=== PATIENT | female | born 1990 | race Caucasian/White ===

== ENCOUNTER 2021-10-24 12:39 | Outpatient (CLI) | payer OTHER, SELFPAY ==
[2021-10-24] VITALS (12 sets, daily range): BP systolic 122–145; BP diastolic 80–100; PULSE 71–88; BMI 26.0
--- NOTE | 2021-10-24 13:39 | PC.NURSE ---
Dr. Marvel Markham informed of pt's BP's during NST for SGA infant. Orders received to change to clinical status, draw labs, urine, and start Labetalol.
[2021-10-24] MEDS: LABETALOL HCL 100 MG TABLET PO (14:05)
[2021-10-24 14:16] LABS: Basophils Percent Auto 0.4 % (0.2-1.2); Eosinophils Absolute Auto 0.1 K/mm3 (0-0.3); Eosinophils Percent Auto 1.1 % (0-4.4); Hematocrit 38.9 % (37.0-47.0); Hemoglobin 13.4 g/dL (12.0-15.0); Immature Granulocyte Absolute 0.07 K/mm3 (0.00-0.031); Immature Granulocyte Percent A 0.7 % (0-0.5); Lymphocytes Absolute Auto 1.95 K/mm3 (0.9-3.2); Lymphocytes Percent Auto 18.6 % (18.3-44.2); Mean Corpuscular HGB Conc 34.4 g/dl (32-36); Mean Corpuscular Volume 92.8 fl (80-100); Mean Platelet Volume 9.2 fl (7.4-10.4); Monocytes Absolute Auto 0.6 K/mm3 (0.1-0.6); Monocytes Percent Auto 5.8 % (2.6-8.5); Neutrophils Absolute Auto 7.7 K/mm3 (1.3-6.7); Neutrophils Percent Auto 73.4 % (45.5-73.1); Platelet Count Result 284 k/mm3 (150-375); Red Blood Count 4.19 M/mm3 (4.2-5.4); Red Cell Distribution Width 12.6 % (11.5-14.5); White Blood Count 10.5 K/mm3 (4.5-10.0)
[2021-10-24 14:18] LABS: Appearance Urine Clear (Clear); Bilirubin Urine Negative (Negative); Blood Urine Trace-lysed (Negative); Color Urine Yellow (Yellow); Glucose Urine UA Negative (Negative); Ketones Urine Negative (Negative); Leukocyte Esterase Ur Negative LEU/UL (Negative); Nitrate Urine Negative (Negative); Protein Urine Negative (Negative); Urobilinogen Urine 0.2 mg/dL (<2.0); pH Urine 6.5 (5.0-9.0)
[2021-10-24 14:23] LABS: RBC Urine 0-2 /hpf (0-2); Squamous Epithelial Cell Urine Occasional /hpf (Few); WBC Urine 0-3 /hpf
[2021-10-24 14:24] LABS: Add Urine Microscopic? YES
[2021-10-24 14:34] LABS: Alanine Aminotransferase 21 U/L (4-35); Alkaline Phosphatase 194 U/L (38-126); Anion Gap 8 mmol/L (8-16); Aspartate Amino Transferase 35 U/L (14-36); Bilirubin,Total 0.2 mg/dL (0.2-1.3); Blood Urea Nitrogen 10 mg/dL (7-17); Calcium 8.9 mg/dL (8.4-10.2); Carbon Dioxide 20 mmol/L (22-30); Chloride 106 mmol/L (98-107); Estimated CRCL calculation 112 ml/min; Estimated Glomerular Filt Rate > 60; Glucose 70 mg/dL (65-110); Potassium 3.9 mmol/L (3.4-5.0); Sodium 134 mmol/L (137-145); Uric Acid 4.8 mg/dL (2.5-7.5)
[2021-10-24 15:14] LABS: Creatinine Urine 31.9 mg/dL; Total Protein Urine Random 13 mg/dL; Ur Ttl Prot Creatinine Ratio 0.41 mg/mg (0-0.20)
--- NOTE | 2021-10-24 15:29 | PC.NURSE ---
Dr. Marvel Markham informed of lab results and updated on BP's. Informed MD that pt would be OK with stopping work. Orders received.
== END 2021-10-24 15:54 | disposition home or self-care (01) ==
LOC: ANHOBOP 13:51 → ANHLDR 13:52
PROVIDERS: Visit Provider Obstetrics & Gynecology
DX: O13.9 Gestational [pregnancy-induced] hypertension without significant proteinuria, unspecified trimester (principal)
CPT/HCPCS: 36415; 59025; 80053; 81001; 82570; 84156; 84550; 85025; A9270

== ENCOUNTER 2021-10-31 12:08 | Outpatient (RCR) | payer OTHER, SELFPAY ==
[2021-10-31 13:11] VITALS: BP 133/88; PULSE 82
== END 2021-11-13 02:52 | disposition home or self-care (01) ==
LOC: ANHOBOP 12:08
PROVIDERS: Visit Provider Obstetrics & Gynecology
DX: O13.9 Gestational [pregnancy-induced] hypertension without significant proteinuria, unspecified trimester (principal); Z3A.00 Weeks of gestation of pregnancy not specified
CPT/HCPCS: 59025

== ENCOUNTER 2021-11-07 11:18 | Outpatient (CLI) | payer OTHER, SELFPAY ==
[2021-11-07 11:37] VITALS: BP 142/95; PULSE 93
[2021-11-07 11:48] VITALS: BP 148/99; PULSE 86
[2021-11-07 11:56] LABS: Basophils Percent Auto 0.4 % (0.2-1.2); Eosinophils Absolute Auto 0.1 K/mm3 (0-0.3); Eosinophils Percent Auto 0.8 % (0-4.4); Hematocrit 39.8 % (37.0-47.0); Hemoglobin 14.3 g/dL (12.0-15.0); Immature Granulocyte Absolute 0.03 K/mm3 (0.00-0.031); Immature Granulocyte Percent A 0.3 % (0-0.5); Lymphocytes Absolute Auto 1.87 K/mm3 (0.9-3.2); Lymphocytes Percent Auto 18.8 % (18.3-44.2); Mean Corpuscular HGB Conc 35.9 g/dl (32-36); Mean Corpuscular Hemoglobin 32.1 pg (26-34); Mean Corpuscular Volume 89.4 fl (80-100); Mean Platelet Volume 9.4 fl (7.4-10.4); Monocytes Absolute Auto 0.7 K/mm3 (0.1-0.6); Monocytes Percent Auto 6.7 % (2.6-8.5); Neutrophils Absolute Auto 7.3 K/mm3 (1.3-6.7); Platelet Count Result 290 k/mm3 (150-375); Red Blood Count 4.45 M/mm3 (4.2-5.4); Red Cell Distribution Width 12.3 % (11.5-14.5)
[2021-11-07 12:00] VITALS: BP 143/102; PULSE 79
[2021-11-07 12:06] LABS: Alanine Aminotransferase 26 U/L (4-35); Albumin Level 3.7 g/dL (3.5-5.1); Alkaline Phosphatase 210 U/L (38-126); Anion Gap 6 mmol/L (8-16); Aspartate Amino Transferase 39 U/L (14-36); Bilirubin,Total 0.4 mg/dL (0.2-1.3); Blood Urea Nitrogen 13 mg/dL (7-17); Calcium 9.2 mg/dL (8.4-10.2); Carbon Dioxide 21 mmol/L (22-30); Chloride 106 mmol/L (98-107); Estimated Glomerular Filt Rate > 60; Glucose 71 mg/dL (65-110); Potassium 3.8 mmol/L (3.4-5.0); Sodium 133 mmol/L (137-145); Uric Acid 6.9 mg/dL (2.5-7.5)
[2021-11-07 12:25] LABS: Appearance Urine Clear (Clear); Bilirubin Urine Negative (Negative); Blood Urine 2+ (Negative); Glucose Urine UA Negative (Negative); Ketones Urine Negative (Negative); Leukocyte Esterase Ur Negative LEU/UL (NEGATIVE); Nitrate Urine Negative (Negative); Protein Urine Negative (Negative); Specific Grav Ur 1.015 (1.001-1.035); Urobilinogen Urine 0.2 mg/dL (<2.0); pH Urine 6.5 (5.0-9.0)
[2021-11-07 12:29] LABS: Add Urine Microscopic? YES; Color Urine Light Yellow (Yellow); Creatinine Urine 78.6 mg/dL; Total Protein Urine Random 22 mg/dL; Ur Ttl Prot Creatinine Ratio 0.28 mg/mg (0-0.20)
[2021-11-07 12:30] VITALS: BP 145/95; PULSE 79
[2021-11-07 12:32] LABS: Mucus Urine Rare /lpf; RBC Urine 21-50 /hpf (0-2); Squamous Epithelial Cell Urine Occasional /hpf (Few); WBC Urine 0-3 /hpf (0-3)
[2021-11-07 12:45] VITALS: BP 142/94; PULSE 78
--- NOTE | 2021-11-07 12:45 | PC.NURSE ---
1230--Pt. up to BR, no headache with movement or exposure to light. Discharge instructions given to pt. and s.o., verbalized understanding. Pt. DC'd home with instructions.
[2021-11-07 13:00] VITALS: BP 140/101; PULSE 77
--- NOTE | 2021-11-07 13:29 | PC.NURSE ---
1310--Report to Dr. Templeton re: v.s., reactive NST, and lab results, orders to schedule IOL for Thursday at 0630.
== END 2021-11-07 13:33 | disposition home or self-care (01) ==
LOC: ANHOBOP 11:26 → ANHLDR 11:27
PROVIDERS: Visit Provider Obstetrics & Gynecology
DX: O13.9 Gestational [pregnancy-induced] hypertension without significant proteinuria, unspecified trimester (principal); Z3A.00 Weeks of gestation of pregnancy not specified
CPT/HCPCS: 36415; 59025; 80053; 81001; 82570; 84156; 84550; 85025; 87086; 99199

== ENCOUNTER 2021-11-11 06:39 | Inpatient (IN) | payer OTHER, SELFPAY ==
[2021-11-11] VITALS (248 sets, daily range): BP systolic 99–180; BP diastolic 57–118; PULSE 26–117; TEMP 36.4–37.3; O2SAT 90–100; BMI 26.2
--- NOTE | 2021-11-11 07:32 | WPDANESEPP ---
Anes - Eval Pre Procedure Procedure: labor epidural Date/Time: 11/11/21 07:32 Surgeon: talha Preop Diagnosis: pain during labor Pre Op Diagnosis: IOL Patient Data Age: 31 Gender: F Height: 1.7 m Weight: 76 kg Last Vital Signs Pulse 65 11/11/21 07:27 BP 150/108 H 11/11/21 07:27 Allergies Allergy/AdvReac Type Severity Reaction Status Date / Time Penicillins Allergy Other Verified 10/24/21 13:22 Home Medications Medication Instructions Recorded Confirmed Type PNV cmb#95-ferrous fumarate-FA 1 tablet PO DAILY 10/24/21 10/24/21 History [] labetalol 100 mg PO Q12H #30 tablet 10/24/21 Rx Laboratory Tests 11/11/21 11/11/21 11/11/21 07:21 07:21 07:21 WBC Pending RBC Pending Hgb Pending Hct Pending MCV Pending MCH Pending MCHC Pending RDW Pending Plt Count Pending MPV Pending Immature Gran % (Auto) Pending Neut % (Auto) Pending Lymph % (Auto) Pending Harvey % (Auto) Pending Eos % (Auto) Pending Baso % (Auto) Pending Lymph # (Auto) Pending Harvey # (Auto) Pending Eos # (Auto) Pending Baso # (Auto) Pending Abs Immat Gran (auto) Pending Absolute Neuts (auto) Pending Absolute Nucleated RBC Pending Nucleated RBC % Pending Sodium Potassium Chloride Carbon Dioxide Anion Gap BUN Creatinine Estim Creat Clear Calc Estimated GFR Glucose Calcium Total Bilirubin AST ALT Alkaline Phosphatase Total Protein Albumin Urine Opiates Screen Pending Urine Methadone Screen Pending Ur Barbiturates Screen Pending Ur Phencyclidine Scrn Pending Ur Amphetamine Screen Pending U Benzodiazepines Scrn Pending Urine Cocaine Screen Pending U Cannabinoids Screen Pending RPR Pending 11/11/21 07:21 WBC RBC Hgb Hct MCV MCH MCHC RDW Plt Count MPV Immature Gran % (Auto) Neut % (Auto) Lymph % (Auto) Harvey % (Auto) Eos % (Auto) Baso % (Auto) Lymph # (Auto) Harvey # (Auto) Eos # (Auto) Baso # (Auto) Abs Immat Gran (auto) Absolute Neuts (auto) Absolute Nucleated RBC Nucleated RBC % Sodium Pending Potassium Pending Chloride Pending Carbon Dioxide Pending Anion Gap Pending BUN Pending Creatinine Pending Estim Creat Clear Calc Pending Estimated GFR Pending Glucose Pending Calcium Pending Total Bilirubin Pending AST Pending ALT Pending Alkaline Phosphatase Pending Total Protein Pending Albumin Pending Urine Opiates Screen Urine Methadone Screen Ur Barbiturates Screen Ur Phencyclidine Scrn Ur Amphetamine Screen U Benzodiazepines Scrn Urine Cocaine Screen U Cannabinoids Screen RPR Patient hx anesthesia problems: none Family hx anesthesia problems: none Results Review: All pre-operative results and documents have been reviewed as part of the pre-operative evaluation. [facility] Past Medical History Medical History (Updated 11/11/21 @ 07:33 by Marifer Melgar CRNA) IUP (intrauterine ), incidental PIH ( induced hypertension) Family History Family History (Updated 10/24/21 @ 14:22 by Eliana Lozano RN) Other No pertinent family history Social History Social History Smoking packs
[2021-11-11 07:33] LABS: Basophils Absolute Auto 0.1 K/mm3 (0.0-0.1); Basophils Percent Auto 0.6 % (0.2-1.2); Eosinophils Absolute Auto 0.2 K/mm3 (0-0.3); Eosinophils Percent Auto 1.6 % (0-4.4); Hematocrit 38.9 % (37.0-47.0); Hemoglobin 13.7 g/dL (12.0-15.0); Immature Granulocyte Absolute 0.06 K/mm3 (0.00-0.031); Immature Granulocyte Percent A 0.6 % (0-0.5); Lymphocytes Absolute Auto 2.66 K/mm3 (0.9-3.2); Lymphocytes Percent Auto 27.4 % (18.3-44.2); Mean Corpuscular HGB Conc 35.2 g/dl (32-36); Mean Corpuscular Hemoglobin 31.9 pg (26-34); Mean Corpuscular Volume 90.7 fl (80-100); Mean Platelet Volume 9.8 fl (7.4-10.4); Monocytes Absolute Auto 0.8 K/mm3 (0.1-0.6); Neutrophils Percent Auto 61.8 % (45.5-73.1); Platelet Count Result 314 k/mm3 (150-375); Red Blood Count 4.29 M/mm3 (4.2-5.4); Red Cell Distribution Width 12.1 % (11.5-14.5); White Blood Count 9.7 K/mm3 (4.5-10.0)
[2021-11-11 07:44] LABS: Alanine Aminotransferase 22 U/L (6-35); Albumin Level 3.7 g/dL (3.5-5.1); Alkaline Phosphatase 201 U/L (38-126); Anion Gap 7 mmol/L (8-16); Aspartate Amino Transferase 35 U/L (14-36); Bilirubin,Total < 0.1 mg/dL (0.2-1.3); Blood Urea Nitrogen 15 mg/dL (7-17); Calcium 9.8 mg/dL (8.4-10.2); Carbon Dioxide 20 mmol/L (22-30); Chloride 106 mmol/L (98-107); Estimated CRCL calculation 98 ml/min; Estimated Glomerular Filt Rate > 60; Glucose 74 mg/dL (65-110); Sodium 133 mmol/L (137-145)
--- NOTE | 2021-11-11 07:45 | PM.IMHP ---
H&P: HPI History of Present Illness Date/Time: 11/11/21 07:45 31-year-old 1 para 0 last menstrual period of 02/15/2021, EDC of 11/19/2021, presents at term for induction of labor secondary to elevated blood pressures. She is negative for group B strep Chief Complaint: elevated blood pressures at term Review of Systems Review of Systems: All systems reviewed & are unremarkable except as noted in HPI and below PMFSH Past Medical History Medical History IUP (intrauterine ), incidental PIH ( induced hypertension) Family History Family History Other No pertinent family history Social History Social History Smoking packs per day: 1 Smoking cigarettes per day: 20.0 Years smoked: 14 Smoking pack-years: 14.00 Smoking status: Current every day smoker Substance use: current Spiritual care concerns: No Meds Home Medications and Allergies Home Medications Medication Instructions Recorded Confirmed Type PNV cmb#95-ferrous fumarate-FA 1 tablet PO DAILY 10/24/21 10/24/21 History [] labetalol 100 mg PO Q12H #30 tablet 10/24/21 Rx Allergies Allergy/AdvReac Type Severity Reaction Status Date / Time Penicillins Allergy Other Verified 10/24/21 13:22 Vital Signs Vital Signs - 24 hr 11/11/21 07:27 Pulse Rate 65 Blood Pressure 150/108 H Exam Const: General: no acute distress Eyes: General: appearance normal, both eyes and all related structures Neck: Neck: supple and no JVD Thyroid: thyroid normal Resp: Effort & Inspection: normal respiratory effort Auscultation: clear to auscultation bilaterally Cardio: Rate: regular rate Rhythm: regular rhythm GI: Inspection: non-distended GI Palp: Yes Soft to palpation, No Tenderness to palpation present (GI) and No Guarding due to palpation present (GI) Auscultation: normal bowel sounds : External Female Exam: normal external appearance Speculum Exam - Vagina: normal appearance of the vagina Speculum Exam - Cervix: Cervical os closed ( cervix 1/50/2. AROM clear. FHTs reassuring) Skin: General skin exam: no rashes or lesions noted Extrem: General: normal to inspection and no edema Psych: Mental Status: mental status grossly normal Affect: normal affect H&P: Results Labs Labs: Short CBC 11/11/21 Range/Units 07:21 WBC 9.7 (4.5-10.0) K/mm3 Hgb 13.7 (12.0-15.0) g/dL Hct 38.9 (37.0-47.0) % Plt Count 314 (150-375) k/mm3 BMP 11/11/21 07:21 Sodium 133 L Potassium 4.0 Chloride 106 Carbon Dioxide 20 L BUN 15 Creatinine 0.70 Glucose 74 Calcium 9.8 Liver Function 11/11/21 Range/Units 07:21 Total Bilirubin < 0.1 L (0.2-1.3) mg/dL AST 35 (14-36) U/L ALT 22 (6-35) U/L Alkaline Phosphatase 201 H (38-126) U/L Albumin 3.7 (3.5-5.1) g/dL Assessment and Plan Additional Plan impression. : Term with elevated blood pressures Plan: Lateral labor. Spontaneous vaginal delivery is expected
[2021-11-11 07:54] LABS: Uric Acid 6.7 mg/dL (2.5-7.5)
[2021-11-11 07:59] LABS: Amphetamine Screen Urine Negative (Negative); Barbiturate Screen Urine Negative (Negative); Benzodiazepines Screen Urine Negative (Negative); Cannabinoid Screen Urine Positive (Negative); Cocaine Screen Urine Negative (Negative); Methadone Screen Urine Negative (Negative); Opiate Screen Urine Negative (Negative); Phencyclidine Screen Urine Negative (Negative)
[2021-11-11] MEDS: LACTATED RINGERS 1,000 ML 125 ML IV CONT ×3 (08:01→17:55)
[2021-11-11] MEDS: OXYTOCIN 30 UNITS/NS 500 ML 30 UNITS/500 ML BAG 6 UNITS IV CONT (08:02)
[2021-11-11 08:20] LABS: Rapid Plasma Reagin Non-Reactive (NonReactive)
[2021-11-11] MEDS: LABETALOL HCL INJ 100 MG/20 ML VIAL 20 MG IV PUSH (08:30)
[2021-11-11] MEDS: LABETALOL HCL INJ 100 MG/20 ML VIAL 40 MG IV PUSH (08:45)
[2021-11-11] MEDS: LABETALOL HCL INJ 100 MG/20 ML VIAL 80 MG IV PUSH (09:53)
[2021-11-11] MEDS: ONDANSETRON INJ 4 MG/2 ML VIAL IV PUSH ×2 (10:18→16:01)
[2021-11-11] MEDS: fentaNYL CITRATE INJ (*CRX) 100 MCG/2 ML VIAL 50 MCG IV PUSH ×2 (10:39→12:21)
--- NOTE | 2021-11-11 12:04 | PM.OBPNLAB ---
Pain Control Date/time seen: 11/11/21 12:04 Pain control: epidural Comments: bps labile. epidural intermittent Pelvic Exam Dilation (cm): 3 Amniotic membrane status: Leaking Contractions Monitor mode: External
[2021-11-11] MEDS: PHENYLEPHRINE 1,000 MCG/10 ML SYRINGE 100 MCG IV PUSH (15:07)
--- NOTE | 2021-11-11 16:18 | PM.OBPNLAB ---
Pain Control Date/time seen: 11/11/21 16:18 Pain control: tolerating well and epidural Pelvic Exam Dilation (cm): 4 Effacement (%): 90 station: -1 Amniotic membrane status: Ruptured Contractions Monitor mode: Internal
[2021-11-11] MEDS: SODIUM CHLORIDE 0.9% IV 300 ML 600 ML I-UTERINE (18:27)
[2021-11-11] MEDS: SODIUM CHLORIDE 0.9% IV 1,000 ML 150 ML I-UTERINE (18:30)
[2021-11-11] MEDS: DEXTROSE 5%/LACTATED RINGERS 1,000 ML 999 ML IV CONT (20:32)
[2021-11-12] VITALS (39 sets, daily range): BP systolic 130–150; BP diastolic 78–99; PULSE 68–135; RESP 16–18; TEMP 36.6–37.6; O2SAT 92–100
--- NOTE | 2021-11-12 01:07 | PM.OBPRVD ---
OB - Delivery Note Procedure Delivery date: 11/12/21 Procedure: mil Events: Gestational Hypertension Induction method: AROM Delivery augmentation: Pitocin Delivery monitor: External FHT Route of delivery: forceps Episiotomy description: None Laceration Description: None Quantitative Blood Loss (ml): 59 Anesthesia type: Epidural Disposition: Floor Baby Date of : 11/12/21 Time of : 00:57 Weeks of gestation at delivery: 39 gender: Male presentation: vertex position: Left Occiput Anterior Placenta delivery description: Spontaneous Cord Vessel Description: 3 Vessels score one minute: 9 score five minutes: 9
[2021-11-12] MEDS: OXYTOCIN 30 UNITS/NS 500 ML 30 UNITS/500 ML BAG 125 UNITS IV CONT (01:30)
[2021-11-12] MEDS: WITCH HAZEL 40 PADS 1 PAD TOPICAL (03:18)
[2021-11-12] MEDS: IBUPROFEN 600 MG TABLET PO ×2 (03:18→14:57)
[2021-11-12] MEDS: BENZOCAINE 20% AER SPR (*SP) 56 GM CAN 1 SPRAY TOPICAL (03:18)
--- NOTE | 2021-11-12 03:34 | ADMGEN ---
This patient, Chuy Esparza, was admitted to OB 2nd Floor Room 290-00. Patient/family oriented to hospital policies and general routines including ID bracelet, bed and alarms, visiting hours, pain management, procedures, bathroom and other care routines, personal items, smoking policy, room service/diet, and visiting hours. Information on how to activate the Rapid Response Team has been discussed. Patient/Family are encouraged to report perceived risks to care and to ask questions if they do not understand what they are told or what they should do.
[2021-11-12] MEDS: DOCUSATE SODIUM 100 MG CAPSULE PO (11:29)
[2021-11-12] MEDS: ACETAMINOPHEN 325 MG TABLET 650 MG PO ×2 (11:29→21:03)
[2021-11-12] MEDS: MULTIVIT/MIN/PREN/FOL AC/IRON TABLET 1 TAB PO (11:29)
[2021-11-12] MEDS: LABETALOL HCL 100 MG TABLET PO (21:03)
[2021-11-13 01:20] VITALS: BP 138/93; PULSE 86; RESP 16; TEMP 36.6
[2021-11-13] MEDS: IBUPROFEN 600 MG TABLET PO (01:23)
[2021-11-13 04:15] VITALS: BP 127/81; PULSE 72; RESP 18; TEMP 37.1
[2021-11-13 04:53] LABS: Hematocrit 30.7 % (37.0-47.0); Hemoglobin 10.3 g/dL (12.0-15.0)
[2021-11-13 07:30] VITALS: BP 131/94; PULSE 73; RESP 18; TEMP 36.7; O2SAT 99
--- NOTE | 2021-11-13 07:41 | PM.DS ---
DS: Admitting Diagnosis Discharge Date 11/13/2021 Admitting Diagnosis 39 week with elevated blood pressures DS: Summary Hospital Course Hospital Course: patient was admitted for induction of labor and was successful. Her pressures were elevated and she remained controlled on labetalol 100 b.i.d. she was up, voiding without difficulty, ambulating, generally without complaints. Time Spent with Patient Time attestation: Total time spent providing and/or coordinating discharge services: Exam Const: General: no acute distress Eyes: General: appearance normal, both eyes and all related structures Neck: Neck: supple and no JVD Thyroid: thyroid normal Resp: Effort & Inspection: normal respiratory effort Auscultation: clear to auscultation bilaterally Cardio: Rate: regular rate Rhythm: regular rhythm GI: Inspection: non-distended GI Palp: Yes Soft to palpation, No Tenderness to palpation present (GI) and No Guarding due to palpation present (GI) Auscultation: normal bowel sounds : General: Yes bladder normal to palpation External Female Exam: normal external appearance Speculum Exam - Vagina: normal vaginal discharge and No vaginal bleeding Speculum Exam - Cervix: nontender Bimanual exam- vagina & uterus: bladder normal to palpation and No Cervical tenderness present OB/external & speculum: No vaginal bleeding Skin: General skin exam: no rashes or lesions noted Extrem: General: normal to inspection and no edema Psych: Mental Status: mental status grossly normal Affect: normal affect DS: Data Data Completed and Pending Labs on day of discharge: Labs from last 24 hours 11/13/21 04:18 Hgb 10.3 L D Hct 30.7 L Discharge Plan Discharge Attending physician on discharge: Doc Almanzar Discharging Clinician: Doc Almanzar Patient Disposition: Home, Self-Care Activity: may shower, no straining and pelvic rest Diet: heart healthy Wound Care Instructions: follow printed instructions Patient Instructions: Antibiotic Form Stand Alone Forms: General Discharge Information Follow-up/Referrals: Doc Almanzar MD [Physician] - Discharge Medications: Continued PNV cmb#95-ferrous fumarate-FA [] 28 mg iron- 800 mcg Tablet 1 tablet PO DAILY RF: 0 labetalol 100 mg Tablet 100 mg PO Q12H Qty: 30 RF: 0 Date of admission: 11/11/21 06:39 Primary Care Provider: PHYSICIAN,[employer] Admitting Provider: Doc Almanzar Attending physician on admission: Doc Almanzar Condition: Stable
--- NOTE | 2021-11-13 07:43 | PM.OBPNVD ---
OB - PN: Subj Subjective Date/time seen: 11/13/21 07:43 Patient comments: no complaints and pain well controlled baby status: doing well OB - PN: Obj Data Labs CBC & Chem 7: 11/13/21 04:18 11/11/21 07:21 Labs: Laboratory Results - last 24 hr 11/13/21 04:18 Hgb 10.3 L D Hct 30.7 L OB - PN A/P Plan day: 1 Plan: routine care, discharge home and follow up 6 weeks (4) Time Spent With Patient Time: Total time spent is greater than 50% in coordination of care (as documented) at patient's floor/unit and/or counseling patient: Time with patient: less than 15 minutes Review of Systems Review of Systems: All systems reviewed & are unremarkable except as noted in HPI and below Exam Const: General: no acute distress Eyes: General: appearance normal, both eyes and all related structures Neck: Neck: supple and no JVD Thyroid: thyroid normal Resp: Effort & Inspection: normal respiratory effort Auscultation: clear to auscultation bilaterally Cardio: Rate: regular rate Rhythm: regular rhythm GI: Inspection: non-distended GI Palp: Yes Soft to palpation, No Tenderness to palpation present (GI) and No Guarding due to palpation present (GI) Auscultation: normal bowel sounds : General: Yes bladder normal to palpation External Female Exam: normal external appearance Speculum Exam - Vagina: normal vaginal discharge and No vaginal bleeding Speculum Exam - Cervix: nontender Bimanual exam- vagina & uterus: bladder normal to palpation and No Cervical tenderness present OB/external & speculum: No vaginal bleeding Skin: General skin exam: no rashes or lesions noted Extrem: General: normal to inspection and no edema Psych: Mental Status: mental status grossly normal Affect: normal affect
[2021-11-13 08:00] VITALS: PULSE 73; RESP 18; O2SAT 99
[2021-11-13 10:15] VITALS: PULSE 73
[2021-11-13] MEDS: DOCUSATE SODIUM 100 MG CAPSULE PO (10:15)
[2021-11-13] MEDS: LABETALOL HCL 100 MG TABLET PO (10:15)
[2021-11-13] MEDS: MULTIVIT/MIN/PREN/FOL AC/IRON TABLET 1 TAB PO (10:16)
--- NOTE | 2021-11-13 10:28 | WPDANLDPN2 ---
Anes-Prog Note L&D Date/Time: 11/13/21 10:28 Comfortable throughout: labor and delivery Neuraxial method: epidural Epidural/Spinal procedure site: clean & non-tender Neuro status: Neuro function grossly intact. Cardiovascular status: normal Respiratory status: normal Airway patency: baseline Mental status: baseline Post-Op hydration status: normal Vital Signs: Last Vital Signs Temp 98.1 F 11/13/21 07:30 Pulse 73 11/13/21 10:15 Resp 18 11/13/21 07:30 BP 131/94 H 11/13/21 07:30 Pulse Ox 99 11/13/21 07:30 Pain score (VAS): 3 I/O: Intake & Output 11/12/21 11/13/21 11/13/21 23:59 07:59 15:59 Intake Total 1000 1000 Output Total 1100 1450 Balance -100 -450 Post-procedural complaints: none Patient feedback: Patient satisfied with anesthetic care.
[2021-11-13 12:52] VITALS: BP 144/93; PULSE 80; RESP 16; TEMP 36.8; O2SAT 98
[2021-11-14 11:47] VITALS: BP 163/99; PULSE 67; RESP 20; TEMP 36.8; O2SAT 100
== END 2021-11-13 15:00 | disposition home or self-care (01) | DRG 560 ==
LOC: ANHLDR 06:42 → ANHOB2 11-12 03:36
PROVIDERS: Admitting Provider Obstetrics & Gynecology; Visit Provider Obstetrics & Gynecology
DX: O13.4 Gestational [pregnancy-induced] hypertension without significant proteinuria, complicating childbirth (principal); Z37.0 Single live birth; Z3A.39 39 weeks gestation of pregnancy; O36.8330 Maternal care for abnormalities of the fetal heart rate or rhythm, third trimester, not applicable or unspecified
CPT/HCPCS: 36415; 80053; 80307; 84550; 85014; 85018; 85025; 86592; 86850; 86900; 86901; A9270; J2370; J2405; J2590; J2795; J3010; J7030; J7120; J7121